=== PATIENT | female | born 1980 | race Caucasian/White ===

== ENCOUNTER → 2020-05-07 | Outpatient (REF) | LOC: M LAB 10:10 | PROVIDERS: ATTEND Nurse Practitioner Adult Health | DX: Z00.00 Encounter for general adult medical examination without abnormal findings (principal) ==

== ENCOUNTER → 2021-07-05 | Outpatient (REF) | payer MEDICAID ==
[2021-07-05 17:46] LABS: HEMATOCRIT 41.8 % (36.0-47.0); HEMOGLOBIN 14.8 g/dl (12.0-15.5); MEAN CORPUSCULAR HEMOGLOBIN 31.5 pg (27.0-33.0); MEAN CORPUSCULAR HGB CONC 35.4 g/dl (32.0-36.5); MEAN CORPUSCULAR VOLUME 88.9 fl (80.0-96.0); PLATELET COUNT, AUTOMATED 208 10^3/uL (150-450); WHITE BLOOD COUNT 5.8 10^3/uL (4.0-10.0)
[2021-07-05 22:34] LABS: HCG, SERUM QUANTITATIVE 13946 MIU/ML; HEPATITIS B SURFACE ANTIGEN NEGATIVE (NEGATIVE); HEPATITIS C VIRUS ABY INDEX < 0.0 INDEX (<0.8); HIV 1&2 SCREEN CENTAUR NEGATIVE (NEGATIVE)
== END ==
LOC: M LAB REF 16:36
PROVIDERS: ATTEND Advanced Practice Midwife
DX: Z32.01 Encounter for pregnancy test, result positive (principal)

== ENCOUNTER → 2021-07-07 | Outpatient (REF) | payer MEDICAID | LOC: M LAB REF 12:11 | PROVIDERS: ATTEND Obstetrics & Gynecology | DX: O36.80X0 Pregnancy with inconclusive fetal viability, not applicable or unspecified (principal); Z3A.00 Weeks of gestation of pregnancy not specified ==

== ENCOUNTER 2021-07-17 14:23 | Emergency (ER) | payer MEDICAID ==
[~2021-07-17] VITALS: Ht 177.8 cm; Wt 95.5 kg
[2021-07-17 14:30] VITALS: BP 109/55
== END 2021-07-17 15:55 | disposition left against medical advice (07) ==
LOC: M ED 14:23
DX: Z53.29 Procedure and treatment not carried out because of patient's decision for other reasons (principal)

== ENCOUNTER → 2021-07-21 | Outpatient (CLI) | payer MEDICAID | LOC: M LABSMTC 10:04 | PROVIDERS: ATTEND Anesthesiology | DX: Z01.812 Encounter for preprocedural laboratory examination (principal); Z20.822 Contact with and (suspected) exposure to COVID-19 ==

== ENCOUNTER 2021-07-26 10:35 | Day surgery (SDC) | payer MEDICAID ==
[~2021-07-26] VITALS: Ht 177.8 cm; Wt 96.3 kg
[~2021-07-26 10:35] MED LIST: LR 1,000 ML IV ONE; ceFAZolin SOD 2 GM in IV 1 EA IV ONE
[2021-07-26] MEDS ORDERED: LIDOCAINE W/EPINEPHRINE 1% 20ML VIAL As Ordered ONE (10:57)
[2021-07-26 11:00] VITALS: BP 144/87
[2021-07-26 11:05] LABS: HEMATOCRIT 39.8 % (36.0-47.0); HEMOGLOBIN 13.7 g/dl (12.0-15.5); MEAN CORPUSCULAR HEMOGLOBIN 30.9 pg (27.0-33.0); MEAN CORPUSCULAR HGB CONC 34.4 g/dl (32.0-36.5); MEAN CORPUSCULAR VOLUME 89.6 fl (80.0-96.0); PLATELET COUNT, AUTOMATED 242 10^3/uL (150-450); RED BLOOD COUNT 4.44 10^6/uL (4.00-5.40); WHITE BLOOD COUNT 6.5 10^3/uL (4.0-10.0)
[2021-07-26] MEDS ORDERED: dexameTHASONE 4 MG/ML 1ML VIAL (J1100 PER 1MG) As Ordered ONE (12:04)
[2021-07-26] MEDS ORDERED: fentaNYL 100 MCG/2 ML INJECTION As Ordered ONE (12:04)
[2021-07-26] MEDS ORDERED: LIDOCAINE 2% 100MG/5ML SDV (FOR ANES.) As Ordered ONE (12:04)
[2021-07-26] MEDS ORDERED: propofoL 200 MG/20 ML VIAL As Ordered ONE (12:04)
[2021-07-26] MEDS ORDERED: ONDANSETRON 4MG/2ML VIAL As Ordered ONE (12:04)
[2021-07-26] MEDS ORDERED: KETOROLAC 60MG 2ML VIAL As Ordered ONE (12:04)
[2021-07-26] MEDS ORDERED: MIDAZOLAM INJ 2MG/2ML VIAL (J2250 PER 1MG) As Ordered ONE (12:05)
== END 2021-07-26 12:27 | disposition home or self-care (01) ==
LOC: M SDC 10:35
PROVIDERS: ATTEND Obstetrics & Gynecology
DX: O02.1 Missed abortion (principal); Z53.09 Procedure and treatment not carried out because of other contraindication

== ENCOUNTER 2021-07-27 14:27 | Day surgery (SDC) | payer MEDICAID ==
[~2021-07-27] VITALS: Ht 177.8 cm; Wt 96.2 kg
[2021-07-27] MEDS: LR 1,000 ML IV SCH (14:51)
[2021-07-27] MEDS: LIDOCAINE W/EPINEPHRINE 1% 20ML VIAL As Ordered ONE (15:22)
[2021-07-27] MEDS ORDERED: dexameTHASONE 4 MG/ML 1ML VIAL (J1100 PER 1MG) As Ordered ONE (15:31)
[2021-07-27] MEDS ORDERED: KETOROLAC 60MG 2ML VIAL As Ordered ONE (15:31)
[2021-07-27] MEDS ORDERED: SUCCINYLCHOLINE 100 MG/5 ML SYRINGE (J0330) As Ordered ONE (15:31)
[2021-07-27] MEDS ORDERED: propofoL 200 MG/20 ML VIAL As Ordered ONE (15:31)
[2021-07-27] MEDS ORDERED: ONDANSETRON 4MG/2ML VIAL As Ordered ONE (15:31)
[2021-07-27] MEDS ORDERED: LIDOCAINE 2% 100MG/5ML SDV (FOR ANES.) As Ordered ONE (15:31)
[2021-07-27] MEDS ORDERED: ROCURONIUM BROMIDE 50 MG/5 ML VIAL As Ordered ONE (15:31)
[2021-07-27] MEDS ORDERED: MIDAZOLAM INJ 2MG/2ML VIAL (J2250 PER 1MG) As Ordered ONE (15:32)
[2021-07-27] MEDS ORDERED: fentaNYL 100 MCG/2 ML INJECTION (J3010) As Ordered ONE (15:32)
[2021-07-27] MEDS: ceFAZolin SOD 2 GM in IV 1 EA IV ONE (16:40)
[2021-07-27] MEDS ORDERED: SUGAMMADEX SODIUM 500 MG/5 ML VIAL (BRIDION) As Ordered ONE (16:54)
[2021-07-27] MEDS ORDERED: fentaNYL 100 MCG/2 ML INJECTION (J3010) IV PRN (17:40)
[2021-07-27] MEDS ORDERED: ONDANSETRON 4MG/2ML VIAL IV PRN (17:40)
[2021-07-27] MEDS ORDERED: oxyCODONE 5MG TAB PO PRN (17:40)
[2021-07-27] MEDS ORDERED: PERCOCET 5MG/325MG TAB PO PRN (17:40)
[2021-07-27] MEDS ORDERED: LR 1,000 ML IV SCH (17:40)
[2021-07-27 18:18] VITALS: BP 138/70
[2021-07-27] MEDS ORDERED: IBUPROFEN 800 MG TAB PO SCH (22:00)
== END 2021-07-27 18:23 | disposition home or self-care (01) ==
LOC: M SDC 14:27
PROVIDERS: ATTEND Obstetrics & Gynecology
DX: O02.1 Missed abortion (principal); F17.210 Nicotine dependence, cigarettes, uncomplicated